=== PATIENT | male | born 1970 | race Caucasian/White ===

== ENCOUNTER 2023-03-12 00:57 | Inpatient (IN) | payer OTHER ==
[~2023-03-12] VITALS: Ht 172.7 cm; Wt 98.9 kg
[2023-03-12] VITALS (8 sets, daily range): BP systolic 114–144; PULSE 62–87; RESP 12–24; TEMP 97.2–98.6; O2SAT 95–100
[2023-03-12] MEDS ORDERED: ONDANSETRON 4 MG ODT TAB PO ONE (01:15)
[2023-03-12] MEDS ORDERED: KETOROLAC TROMETHAMINE 30 MG VIAL IM ONE (01:15)
[2023-03-12] MEDS ORDERED: NACL 0.9% 1,000 ML IV ONE ×3 (01:30→05:15)
[2023-03-12 02:11] LABS: BASOPHILS % (AUTO) 0.3 % (0.0-2.0); EOSINOPHILS % (AUTO) 0.4 % (0.0-4.0); HEMATOCRIT 46.8 % (36-54); LYMPHOCYTES # (AUTO) 1.2 K/uL (1.0-5.5); LYMPHOCYTES % (AUTO) 11.2 % (20.5-51.5); MEAN CORPUSCULAR HEMOGLOBIN 30 pg (27-31); MEAN CORPUSCULAR HGB CONC 34 % (32-36); MEAN CORPUSCULAR VOLUME 88 fL (79.0-98.0); MONOCYTES # (AUTO) 0.5 K/uL (0.0-1.0); MONOCYTES % (AUTO) 5.1 % (1.7-9.3); NEUTROPHILS # (AUTO) 8.8 K/uL (1.8-7.7); PLATELET COUNT (AUTO) 246 K/uL (130-430); RED BLOOD CELL COUNT(AUTO) 5.32 MIL/uL (4.2-6.2); WHITE BLOOD COUNT (AUTO) 10.6 K/uL (4.8-10.8)
[2023-03-12] MEDS ORDERED: MORPHINE 4 MG INJ. 4 MG/ML VIAL IVP ONE ×3 (02:15→04:00)
[2023-03-12 02:20] LABS: ANION GAP 11 (5-15); CALCIUM 8.7 mg/dL (8.4-11.0); CARBON DIOXIDE 24 mmol/L (23-29); CHLORIDE 107 mmol/L (98-107); CREATININE 1.21 mg/dL (0.55-1.30); GFR AFRICAN AMERICAN 80 mL/min (>90); GLUCOSE 146 mg/dL (74-106); POTASSIUM 3.5 mmol/L (3.5-5.1); SODIUM SERUM 142 mmol/L (136-145); UREA NITROGEN, BLOOD 20 mg/dL (8-21)
[2023-03-12 02:21] LABS: GFR NON AFRICAN-AMERICAN 66 mL/min (>90)
[2023-03-12 02:24] LABS: ALANINE AMINOTRANSFERASE 74 U/L (12-78); ALBUMIN 4.2 g/dL (3.4-4.8); ASPARTATE AMINOTRANSFERASE 34 U/L (10-37); LIPASE 100 U/L (73-393); TOTAL BILIRUBIN 0.5 mg/dL (0.0-1.0); TOTAL PROTEIN, SERUM 7.3 g/dL (6.4-8.3)
[2023-03-12 02:26] LABS: ALCOHOL, BLOOD < 3 mg/dL (<10)
[2023-03-12 02:34] LABS: BILIRUBIN,URINE NEGATIVE (NEGATIVE); COLOR,URINE YELLOW (YELLOW); GLUCOSE,URINE NEGATIVE (NEGATIVE); KETONES,URINE 2+ (NEGATIVE); LEUKOCYTE ESTERASE ,URINE NEGATIVE (NEGATIVE); NITRITE, URINE NEGATIVE (NEGATIVE); PROTEIN URINE NEGATIVE (NEGATIVE); UROBILINOGEN,URINE 0.2 (0.2-1.0)
[2023-03-12 02:43] LABS: BLOOD, URINE 1+ (NEGATIVE); CLARITY/URINE HAZY (CLEAR)
[2023-03-12 02:44] LABS: BACTERIA,URINE None Seen /HPF (None Seen); WBC,URINE 0-3 /HPF (0-3)
[2023-03-12 02:50] LABS: BARBITURATE, URINE NEGATIVE (NEG <=200); BENZODIAZEPINE, URINE NEGATIVE (NEG <=150); CANNABINOID, URINE NEGATIVE (NEG <=50); COCAINE, URINE NEGATIVE (NEG <=150); METHAMPHETAMINES SCREEN,URINE NEGATIVE (NEG <=500); OPIATE, URINE NEGATIVE (NEG <=100); PHENCYCLIDINE SCREEN,URINE NEGATIVE (NEG <=25); UR TRICYCLIC ANTIDEPRESSANTS NEGATIVE (NEG <=300); URINE AMPHETAMINE NEGATIVE (NEG <=500); URINE METHADONE NEGATIVE (NEG <=200); URINE OXYCODONE SCREEN NEGATIVE (NEG <=100); URINE PROPOXYPHENE SCREEN NEGATIVE (NEG <=300)
[2023-03-12] MEDS ORDERED: TAMSULOSIN HCL 0.4 MG CAP PO ONE (03:15)
[2023-03-12] MEDS ORDERED: TAMSULOSIN HCL 0.4 MG CAP ONE (03:22)
[2023-03-12] MEDS ORDERED: cefTRIAXone 1 GM IVPB PREMIX 50 ML IV ONE (04:00)
[2023-03-12] MEDS: MORPHINE 2 MG/ML INJ. SYRINGE IVP PRN ×5 (07:01→20:42)
[2023-03-12] MEDS ORDERED: DOCUSATE SODIUM 100 MG CAPSULE PO PRN (08:15)
[2023-03-12] MEDS ORDERED: ACETAMINOPHEN 325 MG TABLET PO PRN ×2 (08:15→08:30)
[2023-03-12] MEDS ORDERED: MUPIROCIN 2% TOPICAL OINTMENT 22 GM NS PRN (08:15)
[2023-03-12] MEDS ORDERED: MAGNESIUM SULFATE 50 ML IV PRN (08:15)
[2023-03-12] MEDS ORDERED: ONDANSETRON HCL 4 MG/2 ML VIAL IVP PRN (08:15)
[2023-03-12] MEDS ORDERED: MORPHINE 2 MG/ML INJ. SYRINGE IVP PRN ×2 (08:15)
[2023-03-12] MEDS ORDERED: NALOXONE HCL 0.4 MG/ML AMP (NARCAN) IVP PRN ×3 (08:15→08:45)
[2023-03-12] MEDS ORDERED: POTASSIUM CHLORIDE 20 MEQ TAB.PRT.SR PO PRN (08:15)
[2023-03-12] MEDS ORDERED: MORPHINE 2 MG/ML INJ. SYRINGE IVP ONE (08:45)
[2023-03-12] MEDS: NACL 0.9% 1,000 ML IV SCH ×2 (08:47→17:05)
[2023-03-12] MEDS: traMADol HCL HCL 50 MG TABLET (ULTRAM) PO SCH ×2 (10:43→20:20)
[2023-03-12] MEDS: TAMSULOSIN HCL 0.4 MG CAP PO SCH (10:43)
[2023-03-13] VITALS: BP_SYST 118; PULSE 64; RESP 16; TEMP 98.2; O2SAT 96
[2023-03-13] MEDS: MORPHINE 2 MG/ML INJ. SYRINGE IVP PRN ×4 (00:56→18:43)
[2023-03-13] MEDS: NACL 0.9% 1,000 ML IV SCH ×3 (05:03→16:42)
[2023-03-13 07:20] LABS: BASOPHILS % (AUTO) 0.2 % (0.0-2.0); EOSINOPHILS # (AUTO) 0.1 K/uL (0.0-0.4); EOSINOPHILS % (AUTO) 0.7 % (0.0-4.0); HEMATOCRIT 41.2 % (36-54); HEMOGLOBIN 13.4 g/dL (14.0-18.0); LYMPHOCYTES # (AUTO) 1.5 K/uL (1.0-5.5); LYMPHOCYTES % (AUTO) 12.6 % (20.5-51.5); MEAN CORPUSCULAR HEMOGLOBIN 30 pg (27-31); MEAN CORPUSCULAR HGB CONC 33 % (32-36); MEAN CORPUSCULAR VOLUME 90 fL (79.0-98.0); MONOCYTES # (AUTO) 1.3 K/uL (0.0-1.0); MONOCYTES % (AUTO) 11.3 % (1.7-9.3); NEUTROPHILS # (AUTO) 8.7 K/uL (1.8-7.7); NEUTROPHILS % (AUTO) 75.2 % (40.0-70.0); PLATELET COUNT (AUTO) 183 K/uL (130-430); RED BLOOD CELL COUNT(AUTO) 4.55 MIL/uL (4.2-6.2); WHITE BLOOD COUNT (AUTO) 11.6 K/uL (4.8-10.8)
[2023-03-13 07:31] LABS: CALCIUM 7.2 mg/dL (8.4-11.0); CREATININE 1.39 mg/dL (0.55-1.30); POTASSIUM 3.8 mmol/L (3.5-5.1)
[2023-03-13 08:00] VITALS: BP_SYST 126; PULSE 83; RESP 17; TEMP 98.2; O2SAT 96; O2SAT 98
[2023-03-13] MEDS: traMADol HCL HCL 50 MG TABLET (ULTRAM) PO SCH ×2 (08:23→21:45)
[2023-03-13] MEDS: TAMSULOSIN HCL 0.4 MG CAP PO SCH (08:25)
[2023-03-13] MEDS: cefTRIAXone 1 GM in D5W 50 ML IV SCH (08:25)
[2023-03-13] MEDS: KETOROLAC TROMETHAMINE 30 MG VIAL IVP PRN ×2 (10:20→16:39)
[2023-03-13] MEDS: LORazepam 2 MG/ML VIAL IVP PRN ×2 (10:21→21:45)
[2023-03-13 12:00] VITALS: BP_SYST 133; PULSE 79; RESP 17; TEMP 97.8; O2SAT 96
[2023-03-13 16:19] VITALS: BP_SYST 129; PULSE 80; RESP 16; TEMP 98.9; O2SAT 96
[2023-03-13 20:30] VITALS: BP_SYST 132; PULSE 84; RESP 18; TEMP 97.5; O2SAT 95
[2023-03-13] MEDS: ZOLPIDEM TARTRATE 5 MG TABLET PO PRN (21:55)
[2023-03-14] VITALS: O2SAT 95
[2023-03-14 01:05] VITALS: BP_SYST 145; PULSE 98; RESP 20; TEMP 98.3; O2SAT 94
[2023-03-14] MEDS: KETOROLAC TROMETHAMINE 30 MG VIAL IVP PRN ×4 (05:04→23:08)
[2023-03-14 06:24] LABS: BASOPHILS % (AUTO) 0.3 % (0.0-2.0); EOSINOPHILS # (AUTO) 0.1 K/uL (0.0-0.4); EOSINOPHILS % (AUTO) 0.5 % (0.0-4.0); HEMATOCRIT 39.3 % (36-54); HEMOGLOBIN 13.2 g/dL (14.0-18.0); LYMPHOCYTES # (AUTO) 1.1 K/uL (1.0-5.5); LYMPHOCYTES % (AUTO) 8.1 % (20.5-51.5); MEAN CORPUSCULAR HEMOGLOBIN 30 pg (27-31); MEAN CORPUSCULAR HGB CONC 34 % (32-36); MEAN CORPUSCULAR VOLUME 90 fL (79.0-98.0); MONOCYTES # (AUTO) 1.4 K/uL (0.0-1.0); NEUTROPHILS # (AUTO) 10.5 K/uL (1.8-7.7); NEUTROPHILS % (AUTO) 80.1 % (40.0-70.0); PLATELET COUNT (AUTO) 194 K/uL (130-430); RED BLOOD CELL COUNT(AUTO) 4.38 MIL/uL (4.2-6.2); RED CELL DISTRIBUTION WIDTH 13.7 % (9.0-15.0); WHITE BLOOD COUNT (AUTO) 13.1 K/uL (4.8-10.8)
[2023-03-14 06:40] LABS: CALCIUM 7.3 mg/dL (8.4-11.0); CREATININE 1.57 mg/dL (0.55-1.30); POTASSIUM 3.5 mmol/L (3.5-5.1)
[2023-03-14 08:00] VITALS: BP_SYST 139; PULSE 88; RESP 17; TEMP 97.2; O2SAT 94; O2SAT 95
[2023-03-14] MEDS: traMADol HCL HCL 50 MG TABLET (ULTRAM) PO SCH ×2 (08:20→21:20)
[2023-03-14] MEDS: TAMSULOSIN HCL 0.4 MG CAP PO SCH (08:20)
[2023-03-14] MEDS: cefTRIAXone 1 GM in D5W 50 ML IV SCH (08:21)
[2023-03-14] MEDS: NACL 0.9% 1,000 ML IV SCH ×3 (10:15→21:21)
[2023-03-14 12:00] VITALS: BP_SYST 135; PULSE 86; RESP 18; TEMP 97.6; O2SAT 98
[2023-03-14] MEDS: MORPHINE 2 MG/ML INJ. SYRINGE IVP PRN ×2 (14:37→21:20)
[2023-03-14 16:00] VITALS: BP_SYST 138; PULSE 89; RESP 17; TEMP 98.2; O2SAT 99
[2023-03-14 20:00] VITALS: BP_SYST 135; PULSE 85; RESP 18; TEMP 97.5; O2SAT 95
[2023-03-14] MEDS: ZOLPIDEM TARTRATE 5 MG TABLET PO PRN (23:07)
[2023-03-15] VITALS: O2SAT 96
[2023-03-15 00:53] VITALS: BP_SYST 141; PULSE 96; RESP 19; TEMP 98.1; O2SAT 96
[2023-03-15] MEDS: MORPHINE 2 MG/ML INJ. SYRINGE IVP PRN (04:25)
[2023-03-15 05:54] LABS: BASOPHILS % (AUTO) 0.4 % (0.0-2.0); EOSINOPHILS # (AUTO) 0.2 K/uL (0.0-0.4); EOSINOPHILS % (AUTO) 1.9 % (0.0-4.0); HEMOGLOBIN 12.7 g/dL (14.0-18.0); LYMPHOCYTES # (AUTO) 1.4 K/uL (1.0-5.5); LYMPHOCYTES % (AUTO) 15.5 % (20.5-51.5); MEAN CORPUSCULAR HEMOGLOBIN 30 pg (27-31); MEAN CORPUSCULAR HGB CONC 33 % (32-36); MEAN CORPUSCULAR VOLUME 90 fL (79.0-98.0); MONOCYTES # (AUTO) 1.1 K/uL (0.0-1.0); NEUTROPHILS # (AUTO) 6.2 K/uL (1.8-7.7); NEUTROPHILS % (AUTO) 70.2 % (40.0-70.0); PLATELET COUNT (AUTO) 179 K/uL (130-430); RED BLOOD CELL COUNT(AUTO) 4.21 MIL/uL (4.2-6.2); WHITE BLOOD COUNT (AUTO) 8.9 K/uL (4.8-10.8)
[2023-03-15 06:21] LABS: CALCIUM 7.2 mg/dL (8.4-11.0); CREATININE 1.47 mg/dL (0.55-1.30); POTASSIUM 3.6 mmol/L (3.5-5.1)
[2023-03-15] MEDS: TAMSULOSIN HCL 0.4 MG CAP PO SCH (08:18)
[2023-03-15] MEDS: traMADol HCL HCL 50 MG TABLET (ULTRAM) PO SCH ×2 (08:18→22:08)
[2023-03-15] MEDS: cefTRIAXone 1 GM in D5W 50 ML IV SCH (08:19)
[2023-03-15] MEDS: KETOROLAC TROMETHAMINE 30 MG VIAL IVP PRN ×3 (10:15→22:08)
[2023-03-15 12:35] VITALS: BP_SYST 134; PULSE 74; RESP 18; TEMP 98.1; O2SAT 95
[2023-03-15 16:17] VITALS: BP_SYST 139; PULSE 76; RESP 18; TEMP 97.9; O2SAT 96
[2023-03-15] MEDS: NACL 0.9% 1,000 ML IV SCH ×2 (16:36→22:09)
[2023-03-15] MEDS: ZOLPIDEM TARTRATE 5 MG TABLET PO PRN (22:07)
[2023-03-16] MEDS: MORPHINE 2 MG/ML INJ. SYRINGE IVP PRN (02:33)
[2023-03-16 03:30] VITALS: BP_SYST 135; PULSE 75; RESP 20; TEMP 98.2; O2SAT 95
[2023-03-16 05:03] LABS: BASOPHILS % (AUTO) 0.6 % (0.0-2.0); EOSINOPHILS # (AUTO) 0.2 K/uL (0.0-0.4); EOSINOPHILS % (AUTO) 3.1 % (0.0-4.0); HEMATOCRIT 37.9 % (36-54); HEMOGLOBIN 12.5 g/dL (14.0-18.0); LYMPHOCYTES # (AUTO) 1.3 K/uL (1.0-5.5); LYMPHOCYTES % (AUTO) 17.1 % (20.5-51.5); MEAN CORPUSCULAR HEMOGLOBIN 30 pg (27-31); MEAN CORPUSCULAR HGB CONC 33 % (32-36); MEAN CORPUSCULAR VOLUME 90 fL (79.0-98.0); MONOCYTES # (AUTO) 0.9 K/uL (0.0-1.0); MONOCYTES % (AUTO) 12.4 % (1.7-9.3); NEUTROPHILS % (AUTO) 66.8 % (40.0-70.0); PLATELET COUNT (AUTO) 223 K/uL (130-430); RED BLOOD CELL COUNT(AUTO) 4.21 MIL/uL (4.2-6.2); RED CELL DISTRIBUTION WIDTH 13.9 % (9.0-15.0); WHITE BLOOD COUNT (AUTO) 7.5 K/uL (4.8-10.8)
[2023-03-16 05:17] LABS: CALCIUM 7.4 mg/dL (8.4-11.0); CREATININE 1.47 mg/dL (0.55-1.30); POTASSIUM 3.7 mmol/L (3.5-5.1)
[2023-03-16] MEDS: KETOROLAC TROMETHAMINE 30 MG VIAL IVP PRN (05:58)
[2023-03-16] MEDS ORDERED: PROPOFOL 200MG/ 20ML VIAL (DIPRIVAN) IV ONE (07:46)
[2023-03-16] MEDS ORDERED: MIDAZOLAM HCL/PF 2 MG/2 ML SYRINGE ONE (07:46)
[2023-03-16] MEDS ORDERED: WATER FOR IRRIGATION,STERILE 1,000 ML IRRIG.SOLN IR ONE (07:46)
[2023-03-16] MEDS ORDERED: fentaNYL CITRATE/PF 100 MCG/2 ML AMP ONE (07:46)
[2023-03-16] MEDS ORDERED: SEVOFLURANE 15 MIN GAS INH ONE (07:46)
[2023-03-16 08:00] VITALS: BP_SYST 149; PULSE 69; RESP 18; TEMP 98.7; O2SAT 100; O2SAT 98
[2023-03-16] MEDS ORDERED: NALOXONE HCL 0.4 MG/ML AMP (NARCAN) IVP PRN (08:30)
[2023-03-16] MEDS ORDERED: ACETAMINOPHEN I.V. 1000 MG 100 ML IV ONE (08:30)
[2023-03-16] MEDS ORDERED: METOCLOPRAMIDE HCL 10 MG/2 ML VIAL IVP PRN (08:30)
[2023-03-16] MEDS ORDERED: HYDROmorphone 1 MG/ML INJ. CARTRIDGE IVP PRN (08:30)
[2023-03-16] MEDS ORDERED: KETOROLAC TROMETHAMINE 30 MG VIAL IVP PRN (08:30)
[2023-03-16] MEDS ORDERED: ONDANSETRON HCL 4 MG/2 ML VIAL IVP PRN (08:30)
[2023-03-16] MEDS: TAMSULOSIN HCL 0.4 MG CAP PO SCH (09:51)
[2023-03-16] MEDS: traMADol HCL HCL 50 MG TABLET (ULTRAM) PO SCH (09:51)
[2023-03-16] MEDS ORDERED: IBUP-1970 PO (09:54)
[2023-03-16 12:00] VITALS: BP_SYST 144; PULSE 72; RESP 18; TEMP 98.4; O2SAT 98
[2023-03-16] MEDS: NACL 0.9% 1,000 ML IV SCH (12:15)
[2023-03-16 15:32] VITALS: BP_SYST 144; PULSE 89; RESP 18; TEMP 98.8; O2SAT 100
[2023-03-16 16:00] VITALS: BP_SYST 140; PULSE 69; RESP 18; TEMP 98; O2SAT 98
== END 2023-03-16 16:45 | disposition home or self-care (01) | DRG 694 ==
LOC: SED 00:57 → SMU 05:01
PROVIDERS: ADMIT General Practice; ATTEND General Practice
PROC: 0TF7XZZ Fragmentation in Left Ureter, External Approach (ICD-10-PCS; principal; 2023-03-16 07:46)
DX: N13.2 Hydronephrosis with renal and ureteral calculous obstruction (principal); K57.30 Diverticulosis of large intestine without perforation or abscess without bleeding; N40.0 Benign prostatic hyperplasia without lower urinary tract symptoms; Z20.822 Contact with and (suspected) exposure to COVID-19
CPT/HCPCS: 36415; 74018; 76376; 80048; 80053; 80307; 81000; 83037; 83605; 83690; 83735; 85025; 87040; 87086; 99285; G0482; J0696; J1885; J2060; J2270; J2405; J2704; J3010; J3465; J7060; Q0162

== ENCOUNTER 2023-03-18 09:36 | Emergency (ER) | payer OTHER ==
[~2023-03-18] VITALS: Ht 172.7 cm; Wt 98.4 kg
[2023-03-18 09:36] VITALS: BP_SYST 151; PULSE 74; RESP 18; TEMP 97.4; O2SAT 98
[~2023-03-18 09:36] MED LIST: IBUP-1970 PO
[2023-03-18] MEDS ORDERED: KETOROLAC TROMETHAMINE 60 MG/2 ML VIAL IM ONE (09:45)
[2023-03-18 10:11] LABS: BASOPHILS # (AUTO) 0.1 K/uL (0.0-0.2); BASOPHILS % (AUTO) 0.8 % (0.0-2.0); EOSINOPHILS # (AUTO) 0.1 K/uL (0.0-0.4); EOSINOPHILS % (AUTO) 1.8 % (0.0-4.0); HEMATOCRIT 44.2 % (36-54); HEMOGLOBIN 14.7 g/dL (14.0-18.0); LYMPHOCYTES # (AUTO) 0.9 K/uL (1.0-5.5); LYMPHOCYTES % (AUTO) 12.1 % (20.5-51.5); MEAN CORPUSCULAR HEMOGLOBIN 30 pg (27-31); MEAN CORPUSCULAR HGB CONC 33 % (32-36); MEAN CORPUSCULAR VOLUME 90 fL (79.0-98.0); MONOCYTES # (AUTO) 0.8 K/uL (0.0-1.0); MONOCYTES % (AUTO) 10.2 % (1.7-9.3); NEUTROPHILS # (AUTO) 5.6 K/uL (1.8-7.7); NEUTROPHILS % (AUTO) 75.1 % (40.0-70.0); PLATELET COUNT (AUTO) 313 K/uL (130-430); RED BLOOD CELL COUNT(AUTO) 4.94 MIL/uL (4.2-6.2); RED CELL DISTRIBUTION WIDTH 13.8 % (9.0-15.0); WHITE BLOOD COUNT (AUTO) 7.5 K/uL (4.8-10.8)
[2023-03-18 10:26] LABS: ALANINE AMINOTRANSFERASE 34 U/L (12-78); ALBUMIN 3.2 g/dL (3.4-4.8); ANION GAP 8 (5-15); ASPARTATE AMINOTRANSFERASE 20 U/L (10-37); CALCIUM 9.5 mg/dL (8.4-11.0); CARBON DIOXIDE 25 mmol/L (23-29); CHLORIDE 107 mmol/L (98-107); CREATININE 1.64 mg/dL (0.55-1.30); GFR AFRICAN AMERICAN 57 mL/min (>90); GLUCOSE 119 mg/dL (74-106); POTASSIUM 4.4 mmol/L (3.5-5.1); SODIUM SERUM 140 mmol/L (136-145); TOTAL BILIRUBIN 0.3 mg/dL (0.0-1.0); TOTAL PROTEIN, SERUM 6.9 g/dL (6.4-8.3); UREA NITROGEN, BLOOD 18 mg/dL (8-21)
[2023-03-18 10:34] LABS: GFR NON AFRICAN-AMERICAN 47 mL/min (>90)
[2023-03-18 10:55] LABS: ACETONE, SERUM NEGATIVE (NEGATIVE)
[2023-03-18 10:56] LABS: AMYLASE 43 U/L (0-100); LIPASE 59 U/L (73-393)
[2023-03-18] MEDS ORDERED: TRAM50TA2 PO (11:07)
[2023-03-18 11:47] VITALS: BP_SYST 151; PULSE 78; RESP 22; TEMP 98.3; O2SAT 98
== END 2023-03-18 11:44 | disposition home or self-care (01) ==
LOC: SED 09:36
DX: N23 Unspecified renal colic (principal); Z79.899 Other long term (current) drug therapy
CPT/HCPCS: 99285; 74176; 80053; 82009; 82150; 83690; 85025; 36415; 76376; 96372; 83605; 82397; J1885